=== PATIENT | male | born 1980 | race Caucasian/White ===

== ENCOUNTER 2021-07-05 10:54 | Outpatient (CLI) | payer OTHER | END 2021-07-05 10:55 | disposition home or self-care (01) | PROVIDERS: ATTEND Radiology Radiation Oncology | DX: R13.13 Dysphagia, pharyngeal phase (principal); R63.3 Feeding difficulties; C32.1 Malignant neoplasm of supraglottis; C32.9 Malignant neoplasm of larynx, unspecified | CPT/HCPCS: 74230 ==

== ENCOUNTER 2021-07-27 09:54 | Day surgery (SDC) | payer SELFPAY ==
[~2021-07-27 09:54] MED LIST: CISPLATIN IV SCH; MANNITOL IV SCH; Palonosetron HCl 0.25 MG in Sodium Chloride 0.9% 50 ML IVPB SCH; SODIUM CHLORIDE 0.9% IV SCH
[2021-07-27] MEDS ORDERED: Sodium Chloride 0.9% 20 ML ONE (10:06)
[2021-07-27 10:31] VITALS: BP 103/62; TEMP 98.1
== END 2021-07-27 16:08 | disposition home or self-care (01) ==
LOC: ONC/OP 09:54
PROVIDERS: ATTEND Internal Medicine Hematology & Oncology
DX: Z51.11 Encounter for antineoplastic chemotherapy (principal); C32.8 Malignant neoplasm of overlapping sites of larynx
CPT/HCPCS: 96361; 96367; 96375; 96413; 96415; 96416; J1100; J1453; J2150; J2469; J3480; J3490; J7030; J7050; J9060

== ENCOUNTER 2021-08-17 08:59 | Day surgery (SDC) | payer SELFPAY ==
[~2021-08-17 08:59] MED LIST changes: +CISplatin 75 MG, manNITOL 12.5 GM in Sodium Chloride 0.9% 500 ML IV SCH; +PALONOSETRON HCL 0.05 MG/ML 5 ML VIAL IVP SCH; +Sodium Chloride 0.9% 500 ML IVPB SCH
[2021-08-17] MEDS ORDERED: Sodium Chloride 0.9% 20 ML ONE (09:02)
[2021-08-17 09:19] VITALS: BP 118/67; TEMP 98.4
== END 2021-08-17 12:58 | disposition home or self-care (01) ==
LOC: ONC/OP 08:59
PROVIDERS: ATTEND Internal Medicine Hematology & Oncology
DX: Z51.11 Encounter for antineoplastic chemotherapy (principal); C32.8 Malignant neoplasm of overlapping sites of larynx
CPT/HCPCS: 96361; 96366; 96367; 96375; 96413; 96415; J1100; J1453; J1642; J2150; J2469; J3480; J3490; J7030; J9060

== ENCOUNTER 2021-08-24 08:53 | Day surgery (SDC) | payer SELFPAY ==
[~2021-08-24 08:53] MED LIST changes: -CISPLATIN IV SCH; -MANNITOL IV SCH; -SODIUM CHLORIDE 0.9% IV SCH
[2021-08-24 09:07] VITALS: BP 114/70; TEMP 98.4
[2021-08-24] MEDS ORDERED: Sodium Chloride 0.9% 20 ML ONE (09:11)
== END 2021-08-24 12:22 | disposition home or self-care (01) ==
LOC: ONC/OP 08:53
PROVIDERS: ATTEND Internal Medicine Hematology & Oncology
DX: Z51.11 Encounter for antineoplastic chemotherapy (principal); C32.8 Malignant neoplasm of overlapping sites of larynx
CPT/HCPCS: 96361; 96367; 96375; 96413; J1100; J1453; J1642; J2150; J2469; J3480; J3490; J7030; J9060

== ENCOUNTER 2021-08-31 08:58 | Day surgery (SDC) | payer SELFPAY ==
[~2021-08-31 08:58] MED LIST changes: -Palonosetron HCl 0.25 MG in Sodium Chloride 0.9% 50 ML IVPB SCH
[2021-08-31 09:10] VITALS: BP 130/76; TEMP 97.6
[2021-08-31] MEDS ORDERED: Sodium Chloride 0.9% 20 ML ONE (09:12)
== END 2021-08-31 12:58 | disposition home or self-care (01) ==
LOC: ONC/OP 08:58
PROVIDERS: ATTEND Internal Medicine Hematology & Oncology
DX: Z51.11 Encounter for antineoplastic chemotherapy (principal); C32.8 Malignant neoplasm of overlapping sites of larynx
CPT/HCPCS: 96361; 96367; 96376; 96413; J1100; J1453; J1642; J2150; J2469; J3480; J3490; J7030; J9060

== ENCOUNTER 2021-09-07 09:13 | Day surgery (SDC) | payer SELFPAY ==
[~2021-09-07 09:13] MED LIST changes: +Palonosetron HCl 0.25 MG in Sodium Chloride 0.9% 50 ML IVPB SCH
[2021-09-07] MEDS ORDERED: Sodium Chloride 0.9% 20 ML ONE (09:15)
[2021-09-07 12:36] VITALS: BP 122/66; TEMP 98.2
== END 2021-09-07 12:36 | disposition home or self-care (01) ==
LOC: ONC/OP 09:13
PROVIDERS: ATTEND Internal Medicine Hematology & Oncology
DX: Z51.11 Encounter for antineoplastic chemotherapy (principal); C32.8 Malignant neoplasm of overlapping sites of larynx
CPT/HCPCS: 96361; 96367; 96375; 96413; J1100; J1453; J1642; J2150; J2469; J3480; J3490; J7030; J9060

== ENCOUNTER 2021-09-14 09:05 | Day surgery (SDC) | payer SELFPAY ==
[~2021-09-14 09:05] MED LIST changes: -Palonosetron HCl 0.25 MG in Sodium Chloride 0.9% 50 ML IVPB SCH
[2021-09-14] MEDS ORDERED: Sodium Chloride 0.9% 20 ML ONE (09:32)
[2021-09-14 09:42] VITALS: BP 116/74; TEMP 98.7
== END 2021-09-14 13:03 | disposition home or self-care (01) ==
LOC: ONC/OP 09:05
PROVIDERS: ATTEND Internal Medicine Hematology & Oncology
DX: Z51.11 Encounter for antineoplastic chemotherapy (principal); C32.8 Malignant neoplasm of overlapping sites of larynx
CPT/HCPCS: 96361; 96367; 96375; 96413; J1100; J1453; J1642; J2150; J2469; J3480; J3490; J7030; J9060

== ENCOUNTER 2021-09-21 09:12 | Day surgery (SDC) | payer SELFPAY ==
[~2021-09-21 09:12] MED LIST changes: +Palonosetron HCl 0.25 MG in Sodium Chloride 0.9% 50 ML IVPB SCH
[2021-09-21] MEDS ORDERED: Sodium Chloride 0.9% 20 ML ONE (09:34)
[2021-09-21 09:44] VITALS: BP 107/65; TEMP 98.5
== END 2021-09-21 13:11 | disposition home or self-care (01) ==
LOC: ONC/OP 09:12
PROVIDERS: ATTEND Internal Medicine Hematology & Oncology
DX: Z51.11 Encounter for antineoplastic chemotherapy (principal); C32.8 Malignant neoplasm of overlapping sites of larynx
CPT/HCPCS: 96361; 96367; 96375; 96413; J1100; J1453; J1642; J2150; J2469; J3480; J3490; J7030; J9060

== ENCOUNTER 2021-09-28 08:50 | Day surgery (SDC) | payer SELFPAY ==
[2021-09-28] MEDS ORDERED: Sodium Chloride 0.9% 20 ML ONE (08:54)
[2021-09-28 09:12] VITALS: BP 86/50; TEMP 97.7
[2021-09-28] MEDS ORDERED: CISplatin 75 MG, manNITOL 12.5 GM in Sodium Chloride 0.9% 500 ML IV SCH (09:30)
[2021-09-28] MEDS ORDERED: PALONOSETRON HCL 0.05 MG/ML 5 ML VIAL IVP SCH (09:30)
[2021-09-28] MEDS ORDERED: Sodium Chloride 0.9% 500 ML IV SCH ×2 (09:30)
== END 2021-09-28 15:00 | disposition home or self-care (01) ==
LOC: ONC/OP 08:50
PROVIDERS: ATTEND Internal Medicine Hematology & Oncology
DX: Z51.11 Encounter for antineoplastic chemotherapy (principal); C32.8 Malignant neoplasm of overlapping sites of larynx
CPT/HCPCS: 96361; 96367; 96376; 96413; J1100; J1453; J1642; J2150; J2469; J3480; J3490; J7030; J9060

== ENCOUNTER 2021-12-20 10:51 | Outpatient (CLI) | payer OTHER ==
[2021-12-20 23:02] LABS: SARS-CoV-2 PCR by NAA Not Detected (NotDetected)
== END 2021-12-20 10:52 | disposition home or self-care (01) ==
LOC: LABBT 10:51
PROVIDERS: ATTEND Family Medicine
DX: Z01.812 Encounter for preprocedural laboratory examination (principal); Z20.822 Contact with and (suspected) exposure to COVID-19
CPT/HCPCS: U0003; U0005

== ENCOUNTER 2021-12-21 09:11 | Outpatient (CLI) | payer OTHER | END 2021-12-21 09:12 | disposition home or self-care (01) | PROVIDERS: ATTEND Radiology Radiation Oncology | DX: C32.9 Malignant neoplasm of larynx, unspecified (principal); R13.13 Dysphagia, pharyngeal phase; R63.30 Feeding difficulties, unspecified | CPT/HCPCS: 74230 ==

== ENCOUNTER 2023-07-22 13:22 | Inpatient (IN) | payer OTHER ==
[~2023-07-22 13:22] MED LIST changes: -CISplatin 75 MG, manNITOL 12.5 GM in Sodium Chloride 0.9% 500 ML IV SCH; +Iopamidol 370 76% 100 ML VIAL ONE; -PALONOSETRON HCL 0.05 MG/ML 5 ML VIAL IVP SCH; -Palonosetron HCl 0.25 MG in Sodium Chloride 0.9% 50 ML IVPB SCH; -Sodium Chloride 0.9% 500 ML IVPB SCH
[2023-07-22 14:47] LABS: Hematocrit 29.4 % (42.0-52.0); Hemoglobin 9.3 g/dL (14.0-18.0); Mean Corpuscular HGB CONC 31.6 g/dL (32.0-36.0); Mean Corpuscular Hemoglobin 24.7 pg (27.0-31.0); Mean Corpuscular Volume 78.2 fl (78.0-98.0); Mean Platelet Volume 8.9 fL (7.4-10.4); Platelet Count 561 10x3/uL (130-400); RBC Distribution Width 15.6 % (11.5-14.5); Red Blood Cell (RBC) Count 3.76 mill/uL (4.70-6.10); White Blood Cell (WBC) Count 15.8 10x3/uL (4.8-10.8)
[2023-07-22 14:48] LABS: #Basophils 0.1 thou/uL (0.0-0.2); #Eosinphils 0.5 thou/uL (0.0-0.7); #Monocytes 1.3 thou/uL (0.11-0.59); #Neutrophils 12.9 thou/uL (1.40-6.50); %Basophils 0.9 % (0.0-1.0); %Eosinophils 2.8 % (0.0-10.0); %Neutrophils 81.4 % (42.0-75.0)
[2023-07-22 15:08] LABS: ALT (SGPT) 15 U/L (8-55); AST (SGOT) 12 U/L (5-34); Alkaline Phosphatase 130 U/L (40-110); Anion Gap 16 mmol/L (10-20); BUN (Urea Nitrogen) 5 mg/dL (8.9-20.6); Bilirubin, Total 0.5 mg/dL (0.2-1.2); Calc. Creatinine Clearance 0 mL/min (70-130); Calcium 8.7 mg/dL (7.8-10.44); Carbon Dioxide 29 mmol/L (22-29); Chloride 92 mmol/L (98-107); Estimated GFR 114; Globulin 3.2 g/dL (2.4-3.5); Glucose 91 mg/dL (70-105); Potassium 4.1 mmol/L (3.5-5.1); Protein, Total 7.2 g/dL (6.0-8.3); Sodium 133 mmol/L (136-145)
[2023-07-22 15:11] LABS: Troponin I 0.097 ng/mL (< 0.028)
[2023-07-22] MEDS ORDERED: Cefepime 2 GM VIAL ONE (18:57)
[2023-07-22] MEDS ORDERED: Vancomycin 1.5 GRAM/300 ML BAG 1.5 GM in Premix Bag 1 BAG IVPB SCH (19:45)
[2023-07-22] MEDS ORDERED: HYDROcodone/Acetaminophen 10/325 mg Tablet PO PRN ×2 (20:22→21:11)
[2023-07-22 20:29] LABS: Troponin I 0.092 ng/mL (< 0.028)
[2023-07-22] MEDS: Gabapentin 300 MG CAP PO SCH (20:37)
[2023-07-22] MEDS ORDERED: Morphine IR Tab 15 MG TAB PO SCH (21:00)
[2023-07-22 22:33] LABS: Troponin I 0.075 ng/mL (< 0.028)
[2023-07-22 22:53] VITALS: BMI 26.0
[2023-07-22] MEDS: HYDROcodone/Acetaminophen 10/325 mg Tablet PO PRN (23:57)
[2023-07-23 04:44] LABS: #Basophils 0.1 thou/uL (0.0-0.2); #Eosinphils 0.4 thou/uL (0.0-0.7); #Monocytes 1.2 thou/uL (0.11-0.59); %Basophils 0.8 % (0.0-1.0); %Eosinophils 3.4 % (0.0-10.0); %Lymphocytes 6.5 % (21.0-51.0); %Monocytes 9.3 % (0.0-10.0); %Neutrophils 79.4 % (42.0-75.0); Hematocrit 31.3 % (42.0-52.0); Hemoglobin 9.8 g/dL (14.0-18.0); Mean Corpuscular HGB CONC 31.3 g/dL (32.0-36.0); Mean Corpuscular Hemoglobin 24.6 pg (27.0-31.0); Mean Corpuscular Volume 78.4 fl (78.0-98.0); Mean Platelet Volume 9.4 fL (7.4-10.4); Platelet Count 510 10x3/uL (130-400); RBC Distribution Width 15.6 % (11.5-14.5); Red Blood Cell (RBC) Count 3.99 mill/uL (4.70-6.10); White Blood Cell (WBC) Count 12.6 10x3/uL (4.8-10.8)
[2023-07-23 05:50] LABS: Anion Gap 15 mmol/L (10-20); BUN (Urea Nitrogen) 4 mg/dL (8.9-20.6); Calc. Creatinine Clearance 175 mL/min (70-130); Calcium 8.4 mg/dL (7.8-10.44); Carbon Dioxide 27 mmol/L (22-29); Chloride 95 mmol/L (98-107); Estimated GFR 117; Glucose 90 mg/dL (70-105); Potassium 3.3 mmol/L (3.5-5.1); Sodium 134 mmol/L (136-145)
[2023-07-23] MEDS: Levothyroxine Sodium 25 MCG TAB PO SCH (06:05)
[2023-07-23] MEDS: Levothyroxine Sodium 112 MCG TAB PO SCH (06:05)
[2023-07-23] MEDS: Morphine ER 15 MG TAB PO SCH ×2 (08:39→20:37)
[2023-07-23] MEDS: BuPROPion XL 150 MG ER.TAB PO SCH (08:39)
[2023-07-23] MEDS: Gabapentin 300 MG CAP PO SCH ×3 (08:39→20:37)
[2023-07-23] MEDS: Sertraline 100 MG TAB PO SCH (08:39)
[2023-07-23] MEDS ORDERED: LevoFLOXacin 750 mg/D5W 750 MG in Premix Bag 1 BAG IVPB SCH (09:00)
[2023-07-23] MEDS: HYDROcodone/Acetaminophen 10/325 mg Tablet PO PRN ×4 (10:20→22:58)
[2023-07-23] MEDS ORDERED: Potassium Chloride 20 MEQ TAB PO SCH (11:30)
[2023-07-23] MEDS ORDERED: Piperacillin/Tazobactam 4.5 GM in Sodium Chloride 0.9% 100 ML IVPB SCH (14:00)
[2023-07-23] MEDS ORDERED: Piperacillin/Tazobactam 3.375 GM in Sodium Chloride 0.9% 100 ML IVPB SCH (14:00)
[2023-07-23 15:56] LABS: Legionella Urinary Ag Negative (Negative); Strep pneumo Urine Ag NEGATIVE (NEGATIVE)
[2023-07-23] MEDS: Linezolid 600 MG in Premix Bag 1 BAG IVPB SCH (16:15)
[2023-07-23] MEDS: Piperacillin/Tazobactam 3.375 GM in Sodium Chloride 0.9% 100 ML IVPB SCH (18:37)
[2023-07-24] MEDS: Piperacillin/Tazobactam 3.375 GM in Sodium Chloride 0.9% 100 ML IVPB SCH ×3 (03:00→17:55)
[2023-07-24] MEDS: Linezolid 600 MG in Premix Bag 1 BAG IVPB SCH ×2 (03:00→15:50)
[2023-07-24 04:50] LABS: #Basophils 0.1 thou/uL (0.0-0.2); #Eosinphils 0.3 thou/uL (0.0-0.7); #Monocytes 0.9 thou/uL (0.11-0.59); #Neutrophils 5.9 thou/uL (1.40-6.50); %Basophils 0.8 % (0.0-1.0); %Eosinophils 3.9 % (0.0-10.0); %Lymphocytes 7.7 % (21.0-51.0); %Monocytes 11.8 % (0.0-10.0); %Neutrophils 74.8 % (42.0-75.0); Hematocrit 28.4 % (42.0-52.0); Hemoglobin 8.8 g/dL (14.0-18.0); Mean Corpuscular Hemoglobin 24.6 pg (27.0-31.0); Mean Corpuscular Volume 79.6 fl (78.0-98.0); Mean Platelet Volume 9.4 fL (7.4-10.4); RBC Distribution Width 15.6 % (11.5-14.5); Red Blood Cell (RBC) Count 3.57 mill/uL (4.70-6.10); White Blood Cell (WBC) Count 7.9 10x3/uL (4.8-10.8)
[2023-07-24 05:07] LABS: Platelet Count 405 10x3/uL (130-400)
[2023-07-24 05:12] LABS: Anion Gap 14 mmol/L (10-20); BUN (Urea Nitrogen) Less than 4 mg/dL (8.9-20.6); Calc. Creatinine Clearance 177 mL/min (70-130); Calcium 7.9 mg/dL (7.8-10.44); Carbon Dioxide 31 mmol/L (22-29); Chloride 97 mmol/L (98-107); Estimated GFR 117; Glucose 107 mg/dL (70-105); Potassium 3.8 mmol/L (3.5-5.1); Sodium 138 mmol/L (136-145)
[2023-07-24] MEDS: Levothyroxine Sodium 25 MCG TAB PO SCH (05:58)
[2023-07-24] MEDS: Levothyroxine Sodium 112 MCG TAB PO SCH (05:58)
[2023-07-24] MEDS: Gabapentin 300 MG CAP PO SCH ×3 (08:05→20:03)
[2023-07-24] MEDS: Sertraline 100 MG TAB PO SCH (08:05)
[2023-07-24] MEDS: Morphine ER 15 MG TAB PO SCH ×2 (08:05→20:04)
[2023-07-24] MEDS: BuPROPion XL 150 MG ER.TAB PO SCH (08:05)
[2023-07-24] MEDS: HYDROcodone/Acetaminophen 10/325 mg Tablet PO PRN ×3 (09:37→22:32)
[2023-07-24] MEDS ORDERED: Ondansetron ODT 4 MG TAB PO PRN ×2 (09:39→09:45)
[2023-07-24 11:58] LABS: Reference Lab Name LABCORP
[2023-07-24] MEDS ORDERED: Ondansetron ODT 4 MG TAB PO SCH (14:00)
[2023-07-24] MEDS ORDERED: Non-Formulary Item 1 EACH (Ondansetron Hcl [Zofran] 4 MG Tab) SL SCH (14:00)
[2023-07-25] MEDS: Piperacillin/Tazobactam 3.375 GM in Sodium Chloride 0.9% 100 ML IVPB SCH ×3 (02:31→17:42)
[2023-07-25] MEDS: Linezolid 600 MG in Premix Bag 1 BAG IVPB SCH ×2 (02:31→14:18)
[2023-07-25] MEDS: HYDROcodone/Acetaminophen 10/325 mg Tablet PO PRN ×2 (05:06→14:24)
[2023-07-25] MEDS: Levothyroxine Sodium 112 MCG TAB PO SCH (05:36)
[2023-07-25] MEDS: Levothyroxine Sodium 25 MCG TAB PO SCH (05:36)
[2023-07-25 06:07] LABS: #Basophils 0.1 thou/uL (0.0-0.2); #Eosinphils 0.3 thou/uL (0.0-0.7); #Monocytes 0.8 thou/uL (0.11-0.59); #Neutrophils 5.1 thou/uL (1.40-6.50); %Basophils 0.7 % (0.0-1.0); %Eosinophils 4.1 % (0.0-10.0); %Lymphocytes 8.6 % (21.0-51.0); %Monocytes 11.1 % (0.0-10.0); %Neutrophils 74.6 % (42.0-75.0); Hematocrit 28.4 % (42.0-52.0); Hemoglobin 8.9 g/dL (14.0-18.0); Mean Corpuscular HGB CONC 31.3 g/dL (32.0-36.0); Mean Corpuscular Hemoglobin 24.4 pg (27.0-31.0); Mean Corpuscular Volume 77.8 fl (78.0-98.0); Mean Platelet Volume 9.3 fL (7.4-10.4); Platelet Count 350 10x3/uL (130-400); RBC Distribution Width 15.7 % (11.5-14.5); Red Blood Cell (RBC) Count 3.65 mill/uL (4.70-6.10); White Blood Cell (WBC) Count 6.8 10x3/uL (4.8-10.8)
[2023-07-25 06:25] LABS: Anion Gap 10 mmol/L (10-20); BUN (Urea Nitrogen) Less than 4 mg/dL (8.9-20.6); Calc. Creatinine Clearance 170 mL/min (70-130); Calcium 7.7 mg/dL (7.8-10.44); Carbon Dioxide 34 mmol/L (22-29); Chloride 96 mmol/L (98-107); Estimated GFR 116; Glucose 108 mg/dL (70-105); Potassium 3.4 mmol/L (3.5-5.1); Sodium 137 mmol/L (136-145)
[2023-07-25] MEDS: Gabapentin 300 MG CAP PO SCH ×3 (09:11→21:15)
[2023-07-25] MEDS: BuPROPion XL 150 MG ER.TAB PO SCH (09:11)
[2023-07-25] MEDS: Sertraline 100 MG TAB PO SCH (09:12)
[2023-07-25] MEDS: Morphine ER 15 MG TAB PO SCH ×2 (09:12→21:13)
[2023-07-25] MEDS ORDERED: Potassium Chloride 20 MEQ TAB PO SCH (11:45)
[2023-07-25] MEDS ORDERED: Melatonin 3 MG TAB PO PRN (18:02)
[2023-07-25] MEDS: HYDROcodone/Acetaminophen 10/325 mg Tablet PO SCH (23:36)
[2023-07-26] MEDS: Piperacillin/Tazobactam 3.375 GM in Sodium Chloride 0.9% 100 ML IVPB SCH ×3 (02:39→18:06)
[2023-07-26] MEDS: Linezolid 600 MG in Premix Bag 1 BAG IVPB SCH ×2 (02:40→16:24)
[2023-07-26] MEDS: Levothyroxine Sodium 112 MCG TAB PO SCH (06:14)
[2023-07-26] MEDS: Levothyroxine Sodium 25 MCG TAB PO SCH (06:14)
[2023-07-26 06:32] LABS: #Eosinphils 0.2 thou/uL (0.0-0.7); #Monocytes 0.6 thou/uL (0.11-0.59); #Neutrophils 4.1 thou/uL (1.40-6.50); %Basophils 0.7 % (0.0-1.0); %Eosinophils 3.6 % (0.0-10.0); %Lymphocytes 12.8 % (21.0-51.0); %Monocytes 11.1 % (0.0-10.0); %Neutrophils 71.1 % (42.0-75.0); Hematocrit 28.9 % (42.0-52.0); Hemoglobin 8.8 g/dL (14.0-18.0); Mean Corpuscular HGB CONC 30.4 g/dL (32.0-36.0); Mean Corpuscular Hemoglobin 24.4 pg (27.0-31.0); Mean Corpuscular Volume 80.1 fl (78.0-98.0); Mean Platelet Volume 8.7 fL (7.4-10.4); Platelet Count 329 10x3/uL (130-400); RBC Distribution Width 15.9 % (11.5-14.5); Red Blood Cell (RBC) Count 3.61 mill/uL (4.70-6.10); White Blood Cell (WBC) Count 5.8 10x3/uL (4.8-10.8)
[2023-07-26 07:01] LABS: Anion Gap 16 mmol/L (10-20); BUN (Urea Nitrogen) Less than 4 mg/dL (8.9-20.6); Calc. Creatinine Clearance 165 mL/min (70-130); Calcium 7.4 mg/dL (7.8-10.44); Carbon Dioxide 30 mmol/L (22-29); Chloride 99 mmol/L (98-107); Estimated GFR 115; Glucose 97 mg/dL (70-105); Potassium 4.1 mmol/L (3.5-5.1); Sodium 141 mmol/L (136-145)
[2023-07-26] MEDS: HYDROcodone/Acetaminophen 10/325 mg Tablet PO SCH ×2 (08:15→21:04)
[2023-07-26] MEDS: Sertraline 100 MG TAB PO SCH (08:15)
[2023-07-26] MEDS: Gabapentin 300 MG CAP PO SCH ×3 (08:15→21:04)
[2023-07-26] MEDS: BuPROPion XL 150 MG ER.TAB PO SCH (08:16)
[2023-07-26] MEDS ORDERED: HYDROcodone/Acetaminophen 10/325 mg Tablet PO SCH (09:00)
[2023-07-26] MEDS: Morphine ER 15 MG TAB PO SCH ×2 (10:02→21:03)
[2023-07-26] MEDS: HYDROcodone/Acetaminophen 10/325 mg Tablet PO PRN (18:06)
[2023-07-26] MEDS: Cyclobenzaprine 10 MG TAB PO SCH (21:02)
[2023-07-26] MEDS ORDERED: Acetaminophen 500 MG TAB PO SCH (23:59)
[2023-07-27] MEDS: Piperacillin/Tazobactam 3.375 GM in Sodium Chloride 0.9% 100 ML IVPB SCH ×3 (02:28→17:40)
[2023-07-27] MEDS: Levothyroxine Sodium 25 MCG TAB PO SCH (06:38)
[2023-07-27] MEDS: Levothyroxine Sodium 112 MCG TAB PO SCH (06:38)
[2023-07-27] MEDS: Gabapentin 300 MG CAP PO SCH ×3 (08:24→20:56)
[2023-07-27] MEDS: Sertraline 100 MG TAB PO SCH (08:24)
[2023-07-27] MEDS: HYDROcodone/Acetaminophen 10/325 mg Tablet PO SCH ×2 (08:25→20:57)
[2023-07-27] MEDS: Cyclobenzaprine 10 MG TAB PO SCH ×2 (08:26→20:56)
[2023-07-27] MEDS: BuPROPion XL 150 MG ER.TAB PO SCH (08:26)
[2023-07-27] MEDS: Linezolid 600 MG TAB PO SCH ×2 (08:29→20:58)
[2023-07-27] MEDS: Morphine ER 15 MG TAB PO SCH ×2 (08:30→20:58)
[2023-07-27 09:35] LABS: Anion Gap 14 mmol/L (10-20); BUN (Urea Nitrogen) 4 mg/dL (8.9-20.6); Calc. Creatinine Clearance 182 mL/min (70-130); Carbon Dioxide 26 mmol/L (22-29); Chloride 101 mmol/L (98-107); Estimated GFR 118; Glucose 78 mg/dL (70-105); Potassium 3.5 mmol/L (3.5-5.1); Sodium 137 mmol/L (136-145)
[2023-07-27] MEDS ORDERED: Calcium Carbonate 500 MG ChewTAB PO SCH ×3 (11:30→21:00)
[2023-07-27] MEDS: HYDROcodone/Acetaminophen 10/325 mg Tablet PO PRN (15:29)
[2023-07-28] MEDS: Piperacillin/Tazobactam 3.375 GM in Sodium Chloride 0.9% 100 ML IVPB SCH ×3 (03:13→17:12)
[2023-07-28] MEDS: Levothyroxine Sodium 25 MCG TAB PO SCH (05:41)
[2023-07-28] MEDS: Levothyroxine Sodium 112 MCG TAB PO SCH (05:41)
[2023-07-28 06:57] LABS: #Basophils 0.1 thou/uL (0.0-0.2); #Eosinphils 0.3 thou/uL (0.0-0.7); #Monocytes 0.7 thou/uL (0.11-0.59); #Neutrophils 5.3 thou/uL (1.40-6.50); %Basophils 0.8 % (0.0-1.0); %Eosinophils 4.2 % (0.0-10.0); %Lymphocytes 10.1 % (21.0-51.0); %Monocytes 9.6 % (0.0-10.0); %Neutrophils 74.7 % (42.0-75.0); Hemoglobin 9.6 g/dL (14.0-18.0); Mean Corpuscular Hemoglobin 24.5 pg (27.0-31.0); Mean Corpuscular Volume 79.1 fl (78.0-98.0); Mean Platelet Volume 8.6 fL (7.4-10.4); Platelet Count 382 10x3/uL (130-400); RBC Distribution Width 16.5 % (11.5-14.5); Red Blood Cell (RBC) Count 3.92 mill/uL (4.70-6.10); White Blood Cell (WBC) Count 7.1 10x3/uL (4.8-10.8)
[2023-07-28 07:26] LABS: Anion Gap 16 mmol/L (10-20); BUN (Urea Nitrogen) 5 mg/dL (8.9-20.6); Calc. Creatinine Clearance 167 mL/min (70-130); Carbon Dioxide 26 mmol/L (22-29); Chloride 101 mmol/L (98-107); Estimated GFR 115; Glucose 84 mg/dL (70-105); Potassium 3.6 mmol/L (3.5-5.1); Sodium 139 mmol/L (136-145)
[2023-07-28 07:35] LABS: Calcium 6.8 mg/dL (7.8-10.44)
[2023-07-28] MEDS: Morphine ER 15 MG TAB PO SCH ×2 (08:42→21:04)
[2023-07-28] MEDS: Gabapentin 300 MG CAP PO SCH ×3 (08:43→21:03)
[2023-07-28] MEDS: HYDROcodone/Acetaminophen 10/325 mg Tablet PO SCH ×2 (08:44→21:03)
[2023-07-28] MEDS: BuPROPion XL 150 MG ER.TAB PO SCH (08:45)
[2023-07-28] MEDS: Cyclobenzaprine 10 MG TAB PO SCH ×2 (08:45→21:04)
[2023-07-28] MEDS: Sertraline 100 MG TAB PO SCH (08:45)
[2023-07-28] MEDS: Linezolid 600 MG TAB PO SCH ×2 (08:45→21:04)
[2023-07-28] MEDS ORDERED: CALCIUM GLUC 1 GM/NS 50 ML 1 GM in Premix Bag 1 BAG IVPB SCH (09:00)
[2023-07-28] MEDS ORDERED: Calcium Carbonate 500 MG ChewTAB PO SCH ×2 (09:00→17:59)
[2023-07-28 11:13] LABS: Magnesium 2.1 mg/dL (1.6-2.6)
[2023-07-28 14:02] LABS: Anion Gap 17 mmol/L (10-20); Carbon Dioxide 26 mmol/L (22-29); Chloride 101 mmol/L (98-107); Potassium 3.7 mmol/L (3.5-5.1); Sodium 140 mmol/L (136-145)
[2023-07-28 14:03] LABS: ALT (SGPT) 8 U/L (8-55); AST (SGOT) 8 U/L (5-34); Albumin 3.5 g/dL (3.5-5.0); Alkaline Phosphatase 107 U/L (40-110); BUN (Urea Nitrogen) 5 mg/dL (8.9-20.6); Bilirubin, Total 0.3 mg/dL (0.2-1.2); Calc. Creatinine Clearance 180 mL/min (70-130); Estimated GFR 118; Globulin 3.1 g/dL (2.4-3.5); Glucose 86 mg/dL (70-105); Protein, Total 6.6 g/dL (6.0-8.3)
[2023-07-28 14:20] LABS: Calcium 6.8 mg/dL (7.8-10.44)
[2023-07-28] MEDS: HYDROcodone/Acetaminophen 10/325 mg Tablet PO PRN (15:27)
[2023-07-28 15:37] LABS: A. flavus Negative (Neg:<1:1); A. fumigatus Negative (Neg:<1:1); A. niger Negative (Neg:<1:1)
[2023-07-28 17:28] LABS: ALT (SGPT) 9 U/L (8-55); AST (SGOT) 7 U/L (5-34); Albumin 3.6 g/dL (3.5-5.0); Alkaline Phosphatase 111 U/L (40-110); Anion Gap 17 mmol/L (10-20); BUN (Urea Nitrogen) 5 mg/dL (8.9-20.6); Bilirubin, Total 0.3 mg/dL (0.2-1.2); Calc. Creatinine Clearance 159 mL/min (70-130); Carbon Dioxide 27 mmol/L (22-29); Chloride 98 mmol/L (98-107); Estimated GFR 113; Globulin 3.3 g/dL (2.4-3.5); Glucose 90 mg/dL (70-105); Potassium 3.6 mmol/L (3.5-5.1); Protein, Total 6.9 g/dL (6.0-8.3); Sodium 138 mmol/L (136-145)
[2023-07-28] MEDS: Calcium Carbonate 500 MG ChewTAB PO SCH (21:05)
[2023-07-28] MEDS: CALCIUM GLUC 1 GM/NS 50 ML 1 GM in Premix Bag 1 BAG IVPB SCH ×2 (21:05→23:29)
[2023-07-28 23:55] LABS: BUN (Urea Nitrogen) 5 mg/dL (8.9-20.6)
[2023-07-28 23:56] LABS: AST (SGOT) 8 U/L (5-34); Albumin 3.4 g/dL (3.5-5.0); Protein, Total 6.4 g/dL (6.0-8.3)
[2023-07-29] MEDS: Piperacillin/Tazobactam 3.375 GM in Sodium Chloride 0.9% 100 ML IVPB SCH ×3 (01:52→19:01)
[2023-07-29] MEDS: Levothyroxine Sodium 112 MCG TAB PO SCH (05:29)
[2023-07-29] MEDS: Levothyroxine Sodium 25 MCG TAB PO SCH (05:29)
[2023-07-29 06:21] LABS: ALT (SGPT) Less than 7 U/L (8-55); Alkaline Phosphatase 102 U/L (40-110); Anion Gap 15 mmol/L (10-20); Bilirubin, Total 0.2 mg/dL (0.2-1.2); Calc. Creatinine Clearance 177 mL/min (70-130); Calcium 7.3 mg/dL (7.8-10.44); Carbon Dioxide 26 mmol/L (22-29); Chloride 102 mmol/L (98-107); Estimated GFR 117; Glucose 88 mg/dL (70-105); Potassium 3.6 mmol/L (3.5-5.1); Sodium 139 mmol/L (136-145)
[2023-07-29] MEDS: Linezolid 600 MG TAB PO SCH ×2 (09:28→22:23)
[2023-07-29] MEDS: Cyclobenzaprine 10 MG TAB PO SCH ×2 (09:28→22:22)
[2023-07-29] MEDS: Sertraline 100 MG TAB PO SCH (09:28)
[2023-07-29] MEDS: Morphine ER 15 MG TAB PO SCH ×2 (09:29→22:22)
[2023-07-29] MEDS: BuPROPion XL 150 MG ER.TAB PO SCH (09:29)
[2023-07-29] MEDS: Calcium Carbonate 500 MG ChewTAB PO SCH ×2 (09:29→22:22)
[2023-07-29] MEDS: Gabapentin 300 MG CAP PO SCH ×3 (09:31→22:23)
[2023-07-29] MEDS: HYDROcodone/Acetaminophen 10/325 mg Tablet PO SCH ×3 (09:32→23:43)
[2023-07-29 13:07] LABS: Phosphorus 4.4 mg/dL (2.3-4.7)
[2023-07-29] MEDS: HYDROcodone/Acetaminophen 10/325 mg Tablet PO PRN (19:00)
[2023-07-30] MEDS: Piperacillin/Tazobactam 3.375 GM in Sodium Chloride 0.9% 100 ML IVPB SCH ×3 (02:39→18:02)
[2023-07-30 06:09] LABS: Anion Gap 15 mmol/L (10-20); BUN (Urea Nitrogen) 5 mg/dL (8.9-20.6); Calc. Creatinine Clearance 170 mL/min (70-130); Carbon Dioxide 26 mmol/L (22-29); Chloride 101 mmol/L (98-107); Estimated GFR 116; Sodium 138 mmol/L (136-145)
[2023-07-30 06:10] LABS: Calcium 7.2 mg/dL (7.8-10.44); Glucose 84 mg/dL (70-105)
[2023-07-30] MEDS: Levothyroxine Sodium 25 MCG TAB PO SCH (06:43)
[2023-07-30] MEDS: Levothyroxine Sodium 112 MCG TAB PO SCH (06:43)
[2023-07-30] MEDS ORDERED: Cholecalciferol (Vitamin D3) 400 UNITS TAB PO SCH (09:00)
[2023-07-30] MEDS: Morphine ER 15 MG TAB PO SCH ×2 (10:11→20:46)
[2023-07-30] MEDS: HYDROcodone/Acetaminophen 10/325 mg Tablet PO SCH ×2 (10:12→20:44)
[2023-07-30] MEDS: Sertraline 100 MG TAB PO SCH (10:28)
[2023-07-30] MEDS: Gabapentin 300 MG CAP PO SCH ×4 (10:30→20:46)
[2023-07-30] MEDS: Cyclobenzaprine 10 MG TAB PO SCH ×2 (10:30→20:46)
[2023-07-30] MEDS: BuPROPion XL 150 MG ER.TAB PO SCH (10:30)
[2023-07-30] MEDS: Linezolid 600 MG TAB PO SCH ×2 (10:34→20:47)
[2023-07-30] MEDS: Calcium Carbonate 500 MG ChewTAB PO SCH (10:35)
[2023-07-30] MEDS: HYDROcodone/Acetaminophen 10/325 mg Tablet PO PRN (16:28)
[2023-07-31] MEDS: Piperacillin/Tazobactam 3.375 GM in Sodium Chloride 0.9% 100 ML IVPB SCH ×3 (01:31→17:47)
[2023-07-31] MEDS: Levothyroxine Sodium 25 MCG TAB PO SCH (05:33)
[2023-07-31] MEDS: Levothyroxine Sodium 112 MCG TAB PO SCH (05:33)
[2023-07-31 06:59] LABS: #Basophils 0.1 thou/uL (0.0-0.2); #Eosinphils 0.3 thou/uL (0.0-0.7); #Monocytes 0.7 thou/uL (0.11-0.59); #Neutrophils 4.8 thou/uL (1.40-6.50); %Basophils 0.8 % (0.0-1.0); %Eosinophils 3.9 % (0.0-10.0); %Lymphocytes 9.6 % (21.0-51.0); %Monocytes 11.5 % (0.0-10.0); %Neutrophils 73.7 % (42.0-75.0); Hematocrit 31.4 % (42.0-52.0); Hemoglobin 9.7 g/dL (14.0-18.0); Mean Corpuscular HGB CONC 30.9 g/dL (32.0-36.0); Mean Corpuscular Hemoglobin 24.6 pg (27.0-31.0); Mean Corpuscular Volume 79.5 fl (78.0-98.0); Mean Platelet Volume 8.6 fL (7.4-10.4); Platelet Count 290 10x3/uL (130-400); RBC Distribution Width 17.1 % (11.5-14.5); Red Blood Cell (RBC) Count 3.95 mill/uL (4.70-6.10); White Blood Cell (WBC) Count 6.4 10x3/uL (4.8-10.8)
[2023-07-31 07:41] LABS: Anion Gap 16 mmol/L (10-20); BUN (Urea Nitrogen) 7 mg/dL (8.9-20.6); Calc. Creatinine Clearance 163 mL/min (70-130); Calcium 7.1 mg/dL (7.8-10.44); Carbon Dioxide 25 mmol/L (22-29); Chloride 101 mmol/L (98-107); Estimated GFR 114; Glucose 87 mg/dL (70-105); Potassium 3.8 mmol/L (3.5-5.1); Sodium 138 mmol/L (136-145)
[2023-07-31] MEDS: Gabapentin 300 MG CAP PO SCH ×3 (09:26→20:31)
[2023-07-31] MEDS: Morphine ER 15 MG TAB PO SCH ×2 (09:27→20:32)
[2023-07-31] MEDS: HYDROcodone/Acetaminophen 10/325 mg Tablet PO SCH ×2 (09:27→20:32)
[2023-07-31] MEDS: Linezolid 600 MG TAB PO SCH ×2 (09:28→20:33)
[2023-07-31] MEDS: Cyclobenzaprine 10 MG TAB PO SCH ×2 (09:28→20:31)
[2023-07-31] MEDS: BuPROPion XL 150 MG ER.TAB PO SCH (09:28)
[2023-07-31] MEDS: Sertraline 100 MG TAB PO SCH (09:38)
[2023-07-31] MEDS: HYDROcodone/Acetaminophen 10/325 mg Tablet PO PRN (16:50)
[2023-08-01] MEDS: Levothyroxine Sodium 112 MCG TAB PO SCH (05:45)
[2023-08-01] MEDS: Levothyroxine Sodium 25 MCG TAB PO SCH (05:45)
[2023-08-01 06:14] LABS: Anion Gap 19 mmol/L (10-20); BUN (Urea Nitrogen) 5 mg/dL (8.9-20.6); Calc. Creatinine Clearance 170 mL/min (70-130); Carbon Dioxide 22 mmol/L (22-29); Chloride 103 mmol/L (98-107); Estimated GFR 116; Glucose 79 mg/dL (70-105); Potassium 3.9 mmol/L (3.5-5.1); Sodium 140 mmol/L (136-145)
[2023-08-01 06:19] LABS: Calcium 6.7 mg/dL (7.8-10.44)
[2023-08-01] MEDS ORDERED: CALCIUM GLUC 1 GM/NS 50 ML 1 GM in Premix Bag 1 BAG IVPB SCH (06:45)
[2023-08-01 07:42] VITALS: BP 96/63; TEMP 97.8
[2023-08-01] MEDS: BuPROPion XL 150 MG ER.TAB PO SCH (08:13)
[2023-08-01] MEDS: Sertraline 100 MG TAB PO SCH (08:13)
[2023-08-01] MEDS: Gabapentin 300 MG CAP PO SCH (08:13)
[2023-08-01] MEDS: Morphine ER 15 MG TAB PO SCH (08:14)
[2023-08-01] MEDS: HYDROcodone/Acetaminophen 10/325 mg Tablet PO SCH (08:15)
[2023-08-01] MEDS: Cyclobenzaprine 10 MG TAB PO SCH (10:16)
== END 2023-08-01 14:49 | disposition home or self-care (01) | DRG 177 ==
LOC: ERS 13:22 → 2NO 18:46 → SURG B 07-24 22:09
PROVIDERS: ADMIT Student in an Organized Health Care Education/Training Program; ATTEND Student in an Organized Health Care Education/Training Program
DX: J85.0 Gangrene and necrosis of lung (principal); J18.9 Pneumonia, unspecified organism; C78.00 Secondary malignant neoplasm of unspecified lung; E87.1 Hypo-osmolality and hyponatremia; R64 Cachexia; C32.1 Malignant neoplasm of supraglottis; D64.9 Anemia, unspecified; E83.51 Hypocalcemia; F41.9 Anxiety disorder, unspecified; F32.A Depression, unspecified; K21.9 Gastro-esophageal reflux disease without esophagitis; E03.9 Hypothyroidism, unspecified; D72.829 Elevated white blood cell count, unspecified; Z98.890 Other specified postprocedural states; R59.0 Localized enlarged lymph nodes; G89.29 Other chronic pain; Z79.899 Other long term (current) drug therapy; Z79.2 Long term (current) use of antibiotics; Z93.0 Tracheostomy status; Z79.890 Hormone replacement therapy; Z80.1 Family history of malignant neoplasm of trachea, bronchus and lung; Z87.891 Personal history of nicotine dependence; Z68.26 Body mass index [BMI] 26.0-26.9, adult
CPT/HCPCS: 36415; 71045; 71275; 77386; 80048; 80053; 82040; 83605; 83735; 83880; 83970; 84100; 84145; 84484; 85025; 86140; 86606; 87040; 87070; 87081; 87102; 87103; 87205; 87206; 87385; 87449; 87899; 93005; 96361; 96365; J0613; J0692; J1642; J1650; J1956; J2020; J2543; J3370; J3490; Q0162; Q9967

== ENCOUNTER 2024-04-21 08:23 | Outpatient (CLI) | payer OTHER | END 2024-04-21 08:24 | disposition home or self-care (01) | LOC: CT 08:23 | PROVIDERS: ATTEND Radiology Radiation Oncology | DX: C76.0 Malignant neoplasm of head, face and neck (principal); C78.01 Secondary malignant neoplasm of right lung; Z98.890 Other specified postprocedural states; M79.9 Soft tissue disorder, unspecified; R91.8 Other nonspecific abnormal finding of lung field | CPT/HCPCS: 70491; 71260 ==

== ENCOUNTER 2024-04-30 10:15 | Outpatient (CLI) | payer OTHER | END 2024-04-30 10:16 | disposition home or self-care (01) | LOC: PET 10:15 | PROVIDERS: ATTEND Radiology Radiation Oncology | DX: C32.1 Malignant neoplasm of supraglottis (principal); R91.8 Other nonspecific abnormal finding of lung field; J98.09 Other diseases of bronchus, not elsewhere classified; Z98.890 Other specified postprocedural states | CPT/HCPCS: 78815; A9552 ==

== ENCOUNTER 2024-08-14 09:04 | Outpatient (CLI) | payer OTHER ==
[2024-08-14] MEDS ORDERED: Iopamidol 370 76% 100 ML VIAL ONE (12:37)
== END 2024-08-14 09:05 | disposition home or self-care (01) ==
LOC: CT 09:04
PROVIDERS: ATTEND Radiology Radiation Oncology
DX: C32.1 Malignant neoplasm of supraglottis (principal); R91.8 Other nonspecific abnormal finding of lung field; K76.0 Fatty (change of) liver, not elsewhere classified
CPT/HCPCS: 70491; 71260; Q9967

== ENCOUNTER 2024-12-04 09:36 | Outpatient (CLI) | payer OTHER ==
[2024-12-04] MEDS ORDERED: Iopamidol 370 76% 100 ML VIAL ONE (13:10)
== END 2024-12-04 09:37 | disposition home or self-care (01) ==
LOC: CT 09:36
PROVIDERS: ATTEND Radiology Radiation Oncology
DX: C78.01 Secondary malignant neoplasm of right lung (principal); C32.1 Malignant neoplasm of supraglottis
CPT/HCPCS: 70490; 71260; Q9967

== ENCOUNTER 2025-07-09 17:21 | Emergency (ER) | payer OTHER ==
[2025-07-09 18:24] LABS: #Basophils 0.07 10x3/uL (0.0-0.2); #Eosinophils 0.20 10x3/uL (0.0-0.7); #Monocytes 0.52 10x3/uL (0.11-0.59); #Neutrophils 3.50 10x3/uL (1.40-6.50); %Basophils 1.3 % (0.0-1.0); %Eosinophils 3.7 % (0.0-10.0); %Lymphocytes 19.6 % (21.0-51.0); %Monocytes 9.7 % (0.0-10.0); %Neutrophils 65.1 % (42.0-75.0); Hematocrit 34.8 % (42.0-52.0); Hemoglobin 10.9 g/dL (14.0-18.0); Mean Corpuscular Hemoglobin 26.7 pg (27.0-31.0); Mean Corpuscular Volume 85.1 fL (78.0-98.0); Platelet Count 206 10x3/uL (130-400); Red Blood Cell (RBC) Count 4.09 mill/uL (4.70-6.10); White Blood Cell (WBC) Count 5.37 10x3/uL (4.8-10.8)
[2025-07-09 18:42] LABS: ALT (SGPT) 20 U/L (Less than 45); AST (SGOT) 25 U/L (11-34); Albumin 4.1 g/dL (3.1-4.5); Alkaline Phosphatase 89 U/L (40-110); Anion Gap 17 mmol/L (10-20); BUN (Urea Nitrogen) 9 mg/dL (8.9-20.6); Bilirubin, Total 0.3 mg/dL (0.3-1.2); Calc. Creatinine Clearance 0 mL/min (70-130); Calcium 8.6 mg/dL (7.8-10.44); Carbon Dioxide 29 mmol/L (22-29); Chloride 96 mmol/L (98-107); Globulin 3.7 g/dL (2.4-3.5); Glucose 152 mg/dL (70-105); Potassium 3.7 mmol/L (3.5-5.1); Sodium 138 mmol/L (136-145)
== END 2025-07-09 20:28 | disposition home or self-care (01) ==
LOC: ERS 17:21
DX: J18.9 Pneumonia, unspecified organism (principal); I10 Essential (primary) hypertension; C14.0 Malignant neoplasm of pharynx, unspecified; C78.02 Secondary malignant neoplasm of left lung; C78.01 Secondary malignant neoplasm of right lung; Z79.899 Other long term (current) drug therapy
CPT/HCPCS: 70491; 71275; 80053; 83605; 84484; 85025; 87040; 93005

== ENCOUNTER 2025-08-11 09:47 | Outpatient (CLI) | payer OTHER ==
[2025-08-11] MEDS ORDERED: Iopamidol 370 76% 100 ML VIAL ONE (12:52)
== END 2025-08-11 09:48 | disposition home or self-care (01) ==
LOC: CT 09:47
PROVIDERS: ATTEND Radiology Radiation Oncology
DX: C32.1 Malignant neoplasm of supraglottis (principal); C78.01 Secondary malignant neoplasm of right lung
CPT/HCPCS: 70491; 71260; Q9967